=== PATIENT | female | born 1965 | race Caucasian/White ===

== ENCOUNTER 2025-01-23 16:32 | Emergency (ER) | payer OTHER, SELFPAY ==
--- NOTE | ~2025-01-23 | CT_ITS ---
CT lumbar spine wo con Ordering provider: Yo Francisco PA-C History: 59 years Female with . low back injury pain, suspect disc bulge . Comparison: None. Technique: CT lumbar spine without contrast. Automated exposure control and iterative reconstruction technique were employed. The dose-length product was 176.02 mGy-cm. FINDINGS: VERTEBRAE: Normal height and alignment. No subluxation or visible acute fracture. DISC SPACES: Well maintained. Multilevel facet joint disease. T12-L1: No stenosis. L1-L2: No stenosis. L2-L3: No stenosis. Diffuse disc bulge. L3-L4: No stenosis. Diffuse disc bulge. L4-L5: No stenosis. Diffuse disc bulge with bilateral narrowing of the foramina with root compressio n. L5-S1: No stenosis. Diffuse disc bulge. PARASPINOUS SOFT TISSUES: Mild atheromatous disease of the abdominal aorta. Right renal cyst with mild dilatation of the right renal pelvis. IMPRESSION: No acute osseous abnormality. Diffuse disc bulge at the level of L4-L5 with bilateral narrowing of the foramina. MRI is better for evaluation. Reviewed, dictated and finalized at location A. IMPRESSION: No acute osseous abnormality. Diffuse disc bulge at the level of L4-L5 with bilateral narrowing of the forami na. MRI is better for evaluation.
[2025-01-23 16:41] VITALS: BP 128/73; PULSE 75; RESP 16; TEMP 36.2; O2SAT 99
--- NOTE | 2025-01-23 17:10 | ED.BACK ---
HPI - Back Pain/Injury General Chief Complaint: Back Pain/Injury Stated Complaint: back pain Time Seen by Provider: 01/23/25 17:05 Source: patient Mode of arrival: ambulatory Limitations: no limitations History of Present Illness HPI Narrative: This is a 59-year-old female who presents to the ED for chief complaint of low back pain after injury today. Patient states she was moving a full laundry basket onto the floor which she felt a tweak in the low back. Patient states that it was difficult to stand straight up and is still having difficulty with standing up. She has been able to walk with abnormal gait due to pain. Denies numbness, weakness, bowel or bladder dysfunction. Denies radiation of pain into the legs. Related Data Allergies Allergy/AdvReac Type Severity Reaction Status Date / Time No Known Allergies Allergy Verified 01/23/25 16:33 Review of Systems Review of Systems: All systems as dictated in HPI Exam Narrative: GENERAL: Well-appearing, well-nourished, and in no acute distress. HEAD: Normocephalic, atraumatic. EYES: PERRLA and EOMI. ENT: Nares clear, no rhinorrhea or epistaxis. Mucous membranes moist. Oropharynx without tonsillar hypertrophy exudate or other lesions. NECK: Supple. No adenopathy or masses. CHEST: No respiratory distress. Clear to auscultation. No wheezes rales or rhonchi HEART: Regular rate and rhythm. No murmur heard. Normal peripheral pulses. ABDOMEN: Soft, nontender, nondistended, normal active bowel sounds. MSK: No midline spinal tenderness throughout. Focal straight leg raise on the left. Negative on the right. No saddle anesthesia. SKIN: Warm, dry, no rash. NEURO: Alert and oriented x4. No focal deficits. 5/5 strength and sensation to the upper and lower extremities grossly. PSYCH: Normal mood and affect. Course Vital Signs Vital signs: Vital Signs Temperature 97.1 F L 01/23/25 16:41 Pulse Rate 75 01/23/25 16:41 Respiratory Rate 16 01/23/25 16:41 Blood Pressure 128/73 01/23/25 16:41 Pulse Oximetry 99 01/23/25 16:41 Temperature 97.6 F 01/23/25 18:48 Pulse Rate 70 01/23/25 18:48 Respiratory Rate 16 01/23/25 18:48 Blood Pressure 120/70 01/23/25 18:48 Pulse Oximetry 100 01/23/25 18:48 MDM - Back Pain/Injury MDM Narrative Medical decision making narrative: This is a 59-year-old female who presents to the ED for chief complaint of low back injury that occurred this afternoon. Vitals are normal. Exam remarkable for the above an equivocal straight leg raise. No red flag signs for back pain such as bowel, bladder dysfunction, numbness or weakness. CT lumbar wo spine: IMPRESSION: No acute osseous abnormality. Diffuse disc bulge at the level of L4-L5 with bilateral narrowing of the foramina. MRI is better for evaluation. Patient was given Elizabeth here with good relief. Will be given prescription for muscle relaxer. Encouraged OTC pain medications and follow-up with PCP on this issue. Patient will be discharged in stable condition. Supportive measures discussed and return precautions given. Patient is understanding and agreeable with plan for discharge with PCP follow-up. Discharge Plan Discharge Clinical Impression: Strain of lumbar region, Bulging lumbar disc Patient Disposition: Home Condition: Stable Instructions: Antibiotic Form Additional Instructions: Your exam today is reassuring, however there is a bulging disc at L4-L5.. Will resolve slowly over the next several weeks. Please take muscle relaxers as needed. Use regular Tylenol 500 mg and ibuprofen 600 mg every 6 hours as needed for pain control. If you have any new or worsening symptoms please return to the ER for further evaluation. Patient Language: Scottish Prescriptions: New cyclobenzaprine 10 mg tablet 10 mg PO HS PRN (Reason: muscle spasm) Qty: 10 0RF Follow-up/Referrals: PHYSICIAN NOT ON STAFF,NONSTAFF [Primary Care Provider] - Time of Disposition: 18:19
[2025-01-23] MEDS: HYDROcodone/acetaminophen (*CRX) 5-325 MG TABLET 1 TAB PO (17:42)
[2025-01-23] MEDS: IBUPROFEN 400 MG TABLET 800 MG PO (17:42)
--- OUTSIDE RECORDS SUMMARY | 2025-01-23 17:49 | XMS_ITS | Clinical Summary ---
Author Organization [facility] Address [address] [place] [address] Care Team Providers Care Valve Lapper Name Role Phone Unavailable Primary Care Provider Unavailabl e Source Comments [facility],non-owned Affiliates and Associated Physician Practices is amultiple site organization consisting of ambulatory clinics and hospital sitesin [place], [place], [place] and [place]. This disclosure is being madepursuant to the Care Everywhere program and may not contain all information available regarding this patient. Last updated 18.[facility] Allergies No known active allergies Medications * Be aware that medications may not be up to date on this document. Alwaysverify current medications with the patient. No known medications Social History Tobacco Use Types Packs/Day Years Used Date Smoking Tobacco: Every Day Cigarettes Smokeless Tobacco: Never Comments No Sex and Gender Information Value Date Recorded Sex Assigned at Not on file Legal Sex Female 4:35 PM CDT Gender Identity Not on file Sexual Orientation Not on file Last Filed Vital Signs Vital Sign Reading Time Taken Comments Blood Pressure 118/74 08/17/2017 9:11 AM SALES RECRUITER Pulse 82 08/17/2017 9:11 AM SALES RECRUITER Temperature 36.8 C (98.2 F) 08/17/2017 9:11 AM SALES RECRUITER Respiratory Rate 16 08/17/2017 9:11 AM SALES RECRUITER Oxygen Saturation 100% 08/17/2017 9:11 AM SALES RECRUITER Inhaled Oxygen Concentration - - Weight 53.1 kg (117 lb) 08/17/2017 9:11 AM SALES RECRUITER Height 171.5 cm (5' 7.5 ) 08/17/2017 9:11 AM SALES RECRUITER Body Mass Index 18.05 08/17/2017 9:11 AM SALES RECRUITER Plan of Treatment Health Maintenance Due Date Last Done Comments DAYDAY (AGES 45-75) - COL ON CA SCREENING 1966 COLON MONITORING 1966 COLONOSCOPY - COLON CA SCREENING 1966 CT COLONOGRAPHY - COLON CA SCREENING 1966 Colorectal Cancer Screening 1966 FIT - COLON CA SCREENING 1966 FLEX SIG - COLON CA SCREENING 1966 LIPID TESTING 1966 MAMMOGRAM 1966 HIV SCREENING 1981 HEPATITIS C SCREENING 12/17/1984 DTAP/TDAP/TD VACCINES (1 - Tdap) 1985 HEPATITIS B VACCINE (1 of 3 - 19+ 3-dose series) 1985 PNEUMOCOCCAL VACCINE 50+ (1 of 1 - PCV) 2016 ZOSTER VACCINE (1 of 2) 2016 COVID-19 VACCINE ( - 2023-2 5 season) 2024 DEPRESSION SCREENING 10/01/2024 INFLUENZA VACCINE (Season Ended) 2025 HIB VACCINE Aged Out No longer eligi ble based on patient's age to complete this topic HPV VACCINE Aged Out No longer eligi ble based on patient's age to complete this topic MENINGOCOCCAL (Group B) VACC INE SHARED DECISION-MAKING Aged Out No longer eligibl e based on patient's age to complete this topic MENINGOCOCCAL GROUPS A/C/Y/W VACCINE Aged Out No longer eligible b ased on patient's age to complete this topic Insurance [facility]
[2025-01-23 18:48] VITALS: BP 120/70; PULSE 70; RESP 16; TEMP 36.4; O2SAT 100
== END 2025-01-23 18:49 | disposition home or self-care (01) ==
PROVIDERS: Emergency Provider Physician Assistant
DX: S39.012A Strain of muscle, fascia and tendon of lower back, initial encounter (principal); M51.369 Other intervertebral disc degeneration, lumbar region without mention of lumbar back pain or lower extremity pain; X50.0XXA Overexertion from strenuous movement or load, initial encounter
CPT/HCPCS: 72131; 99284; A9270

== ENCOUNTER 2025-08-26 06:27 | Emergency (ER) | payer OTHER, SELFPAY ==
[2025-08-26] VITALS (35 sets, daily range): BP systolic 80–162; BP diastolic 59–81; PULSE 56–110; RESP 12–26; O2SAT 93–100
--- NOTE | ~2025-08-26 | XR_ITS ---
EXAMINATION: XR chest 2V 08/26/2025 06:49 INDICATION: Chest heaviness PROCEDURE: 2 view chest COMPARISON: No prior studies for comparison. FINDINGS: The lungs are clear. The cardiomediastinal silhouette is within normal limits. There are no pleural effusions. There is no pneumothorax suspected. IMPRESSION: 1: NO ACUTE CARDIOPULMONARY DISEASE. Reviewed, dictated and finalized at location O. OR CONTACT CENTRE TEAM LEADER
--- NOTE | 2025-08-26 06:37 | ECG_ITS ---
Test Date: 2025-08-26 08:25:18 Measurements Intervals [place] Rate: 68 P: 74 [place]: 171 QRS: 54 QRSD: 97 T: 75 QT: 390 QTc: 417 Interpretive Statements SINUS RHYTHM Compared to ECG 08/26/2025 06:37:06 NO CHANGES Electronically Signed On 08-26-2025 13:33:39 BEAD MAKER by Marcus Becerra M.D.
[2025-08-26 07:02] LABS: Hematocrit 39.6 % (37.0-47.0); Hemoglobin 13.1 g/dL (12.0-15.0); Immature Granulocyte Percent A 0.4 % (0-0.5); Lymphocytes Absolute Auto 4.82 K/mm3 (0.9-3.2); Mean Corpuscular HGB Conc 33.1 g/dl (32-36); Mean Corpuscular Hemoglobin 30.3 pg (26-34); Mean Corpuscular Volume 91.7 fl (80-100); Nucleated Red Blood Cells Absolute Auto 0.000 K/mm3 (0.0-0.012); Nucleated Red Blood Cells Perc 0.0 % (0.0-0.2); Platelet Count Result 322 k/mm3 (150-375); Red Blood Count 4.32 M/mm3 (4.2-5.4); White Blood Count 10.2 K/mm3 (4.5-10.0)
[2025-08-26 07:11] LABS: Alanine Aminotransferase 12 U/L (6-35); Albumin Level 4.8 g/dL (3.5-5.1); Alkaline Phosphatase 91 U/L (38-126); Anion Gap 7 mmol/L (4-12); Aspartate Amino Transferase 21 U/L (14-36); Bilirubin,Total 0.6 mg/dL (0.2-1.3); Blood Urea Nitrogen 10 mg/dL (7-17); Calcium 10.0 mg/dL (8.4-10.2); Carbon Dioxide 25 mmol/L (22-30); Chloride 106 mmol/L (98-107); Estimated CRCL calculation 54 ml/min; Estimated Glomerular Filt Rate > 60; Glucose 93 mg/dL (65-110); Lipase 182 U/L (23-300); Potassium 4.3 mmol/L (3.4-5.0); Sodium 138 mmol/L (137-145); Total Protein 8.0 g/dL (6.3-8.2)
[2025-08-26] MEDS: ASPIRIN 81 MG CHEWABLE TABLET 324 MG PO (07:12)
[2025-08-26 07:15] LABS: INR 1.0; Partial Thromboplastin Time 30.9 Seconds (22.3-36.8); Prothrombin Time 12.7 Seconds (11.1-14.7)
[2025-08-26 07:22] LABS: Troponin I < 0.012 ng/mL (0.000-0.034)
--- NOTE | 2025-08-26 07:36 | ED.GENADULT ---
HPI - General Adult General Chief complaint: Chest Pain Stated complaint: chest heaviness and fluttering Time Seen by Provider: 08/26/25 06:56 History of Present Illness HPI narrative: This is a 59-year-old female presenting with chief complaint of palpitations. Patient says she woke up from sleep with a heaviness in her chest. The venous was nonradiating, described as not true pain but uncomfortable, constant with no alleviating or precipitating factors. She has never had symptoms like this in the past. She says she feels like her heart is ?running away from her.?Patient denies any history cardiac dysrhythmia or atrial fibrillation. Patient denies any recent illness, shortness breath, chest pain, abdominal pain urinary symptoms or nausea vomiting diarrhea. Patient has no medical history. Related Data Allergies Allergy/AdvReac Type Severity Reaction Status Date / Time No Known Allergies Allergy Verified 08/26/25 06:43 Exam Narrative: APPEARANCE: No apparent distress. Head: atraumatic. EYES: EOMI, NOSE: Atraumatic NECK: Trachea midline RESPIRATORY: No increased rate of breathing clear to auscultation CARDIOVASCULAR: RRR, regular, no peripheral edema ABDOMINAL: Non-distended soft nontender MUSCULOSKELETAl: No obvious deformities NEURO: Alert. Moving 4/4 extremities SKIN:: Warm, dry. Normal color PSYCHIATRIC: Normal affect Course Vital Signs Vital signs: Vital Signs Pulse Rate 90 08/26/25 06:38 Respiratory Rate 26 H 08/26/25 06:38 Blood Pressure 162/81 H 08/26/25 06:38 Pulse Oximetry 97 08/26/25 06:38 Oxygen Delivery Room Air 08/26/25 06:38 Pulse Rate 73 08/26/25 09:48 Respiratory Rate 18 08/26/25 09:48 Blood Pressure 102/68 08/26/25 09:48 Pulse Oximetry 98 08/26/25 09:48 Oxygen Delivery Room Air 08/26/25 06:41 Medical Decision Making [facility] Narrative Medical decision making narrative: -Course: 59-year-old female presenting with palpitations. EKG shows sinus rhythm with frequent PVCs. The rest of her workup was unremarkable including laboratory studies, troponin negative x2 chest x-ray. Patient was informed of the results. She will be given cardiology follow-up. Given return precautions for chest pain worsening palpitations. -DDX includes but is not limited to: PACs, PVCs, atrial fibrillation AV block Vital Signs Vital Signs: Vital Signs Pulse Rate 90 08/26/25 06:38 Respiratory Rate 26 H 08/26/25 06:38 Blood Pressure 162/81 H 08/26/25 06:38 Pulse Oximetry 97 08/26/25 06:38 Oxygen Delivery Room Air 08/26/25 06:38 Pulse Rate 73 08/26/25 09:48 Respiratory Rate 18 08/26/25 09:48 Blood Pressure 102/68 08/26/25 09:48 Pulse Oximetry 98 08/26/25 09:48 Oxygen Delivery Room Air 08/26/25 06:41 Lab Data 08/26/25 06:40 08/26/25 06:40 Labs: Lab Results 08/26/25 08/26/25 Range/Units 06:40 09:35 WBC 10.2 H (4.5-10.0) K/mm3 RBC 4.32 (4.2-5.4) M/mm3 Hgb 13.1 (12.0-15.0) g/dL Hct 39.6 (37.0-47.0) % MCV 91.7 (80-100) fl MCH 30.3 (26-34) pg MCHC 33.1 (32-36) g/dl RDW 13.1 (11.5-14.5) % Plt Count 322 (150-375) k/mm3 MPV 10.4 (7.4-10.4) fl Immature Gran % (Auto) 0.4 (0-0.5) % Neut % (Auto) 44.4 L (45.5-73.1) % Lymph % (Auto) 47.5 H (18.3-44.2) % [place] % (Auto) 5.3 (2.6-8.5) % Eos % (Auto) 1.6 (0-4.4) % Baso % (Auto) 0.8 (0.2-1.2) % Lymph # (Auto) 4.82 H (0.9-3.2) K/mm3 [place] # (Auto) 0.5 (0.1-0.6) K/mm3 Eos # (Auto) 0.2 (0-0.3) K/mm3 Baso # (Auto) 0.1 (0.0-0.1) K/mm3 Abs Immat Gran (auto) 0.04 H (0.00-0.031) K/mm3 Absolute Neuts (auto) 4.5 (1.3-6.7) K/mm3 Absolute Nucleated RBC 0.000 (0.0-0.012) K/mm3 Nucleated RBC % 0.0 (0.0-0.2) % PT 12.7 (11.1-14.7) Seconds INR 1.0 APTT 30.9 (22.3-36.8) Seconds Sodium 138 (137-145) mmol/L Potassium 4.3 (3.4-5.0) mmol/L Chloride 106 (98-107) mmol/L Carbon Dioxide 25 (22-30) mmol/L Anion Gap 7 (4-12) mmol/L BUN 10 (7-17) mg/dL Creatinine 0.87 (0.7-1.0) mg/dL Estim Creat Clear Calc 54 ml/min Estimated GFR > 60 (59 - ) Glucose 93 (65-110) mg/dL Calcium 10.0 (8.4-10.2) mg/dL Total Bilirubin 0.6 (0.2-1.3) mg/dL AST 21 (14-36) U/L ALT 12 (6-35) U/L Alkaline Phosphatase 91 (38-126) U/L Troponin I < 0.012 < 0.012 (0.000-0.034) ng/mL Total Protein 8.0 (6.3-8.2) g/dL Albumin 4.8 (3.5-5.1) g/dL Lipase 182 (23-300) U/L TSH 1.710 (0.465-4.680) uIU/mL Discharge Plan Discharge Clinical Impression: Frequent PVCs Patient Disposition: Home Condition: Stable Instructions: Antibiotic Form, Heart Palpitations (DC) Additional Instructions: You were seen emergency department for palpitations. You are having frequent PVCs.(premature ventricular contractions.) These are not dangerous but can be uncomfortable or knowing. Please follow-up with the nitroglycerin separator operator listed below for further management. If you develop chest pain or any new symptoms return to the ED for re-evaluation. Patient Language: Maltese Prescriptions: No Action cyclobenzaprine 10 mg tablet 10 mg PO HS PRN (Reason: muscle spasm) Qty: 10 0RF Follow-up/Referrals: kayla [Other] PHYSICIAN NOT ON STAFF,NONSTAFF [Non-Staff] Stacey Valle MD [Physician, Cardiology] - 1 Week Clinical Impression: Frequent PVCs
--- OUTSIDE RECORDS SUMMARY | 2025-08-26 08:18 | XMS_ITS | Clinical Summary ---
Author Organization [facility] Address [address] [place] [address] Care Team Providers Care Transformation Consultant Name Role Phone Unavailable Primary Care Provider Unavailabl e Source Comments [facility],non-owned Affiliates and Associated Physician Practices is amultiple site organization consisting of ambulatory clinics and hospital sitesin [place], [place], [place] and [place]. This disclosure is being madepursuant to the Care Everywhere program and may not contain all information available regarding this patient. Last updated 18.[facility] Allergies No known active allergies Medications * [...] Comments Blood Pressure 118/74 08/17/2017 9:11 AM ACID CRANE OPERATOR Pulse 82 08/17/2017 9:11 AM ACID CRANE OPERATOR Temperature 36.8 C (98.2 F) 08/17/2017 9:11 AM ACID CRANE OPERATOR Respiratory Rate 16 08/17/2017 9:11 AM ACID CRANE OPERATOR Oxygen Saturation 100% 08/17/2017 9:11 AM ACID CRANE OPERATOR Inhaled Oxygen Concentration - - Weight 53.1 kg (117 lb) 08/17/2017 9:11 AM ACID CRANE OPERATOR Height 171.5 cm (5' 7.5) 08/17/2017 9:11 AM ACID CRANE OPERATOR Body Mass Index 18.05 08/17/2017 9:11 AM ACID CRANE OPERATOR Plan of Treatment Health Maintenance Due Date [...] of 3 - 19+ 3-dose series) 1985 PAP SMEAR 12/23/1987 Cervical Cancer Screening 1996 PAP with HPV 1996 PNEUMOCOCCAL VACCINE 50+ (1 of 1 - PCV) 2016 ZOSTER VACCINE (1 of 2) 2016 DEPRESSION SCREENING 10/01/2024 COVID-19 VACCINE (1 - 2024-2 6 season) 2025 INFLUENZA VACCINE (#1) 2025 HIB VACCINE Aged Out No longer [...] patient's age to complete this topic Insurance [facility] [place] [facility] [place] Address: [facility] [id number] [place] [id number]
--- NOTE | 2025-08-26 08:20 | ECG_ITS ---
Test Date: 2025-08-26 08:30:58 Measurements Intervals [place] Rate: 73 P: 75 RI: 174 QRS: 55 QRSD: 85 T: 75 QT: 378 QTc: 419 Interpretive Statements SINUS RHYTHM WITH OCCASIONAL ECTOPIC PREMATURE COMPLEXES Compared to ECG 08/26/2025 08:25:18 NO SIGNIFICANT CHANGES Electronically Signed On 08-26-2025 13:33:57 STRATIGRAPHY TEACHER by Marcus Becerra M.D.
--- NOTE | 2025-08-26 08:27 | ECG_ITS ---
Test Date: 2025-08-26 06:37:06 Measurements Intervals [place] Rate: 87 P: 75 SC: 166 QRS: 60 QRSD: 85 T: 71 QT: 355 QTc: 427 Interpretive Statements SINUS RHYTHM WITH FREQUENT VENTRICULAR PREMATURE COMPLEXES POSSIBLE LEFT ATRIAL ENLARGEMENT [-0.1mV P WAVE IN V1/V2] No previous ECG available for comparison Electronically Signed On 08-26-2025 13:32:53 BUSSER by Marcus Becerra M.D.
[2025-08-26 09:15] LABS: Thyroid Stimulating Hormone 1.710 uIU/mL (0.465-4.680)
--- NOTE | 2025-08-26 09:47 | ECG_ITS ---
Test Date: 2025-08-26 09:50:53 Measurements Intervals [place] Rate: 65 P: 73 [place]: 182 QRS: 48 QRSD: 86 T: 78 QT: 378 QTc: 394 Interpretive Statements SINUS RHYTHM WITH OCCASIONAL VENTRICULAR PREMATURE COMPLEXES POSSIBLE RIGHT VENTRICULAR CONDUCTION DELAY [RSR (QR) IN V1/V2] Compared to ECG 08/26/2025 08:30:58 Ventricular premature complex(es) still present Electronically Signed On 08-26-2025 13:36:49 ANTIQUE FINISHER by Marcus Becerra M.D.
[2025-08-26 10:04] LABS: Troponin I < 0.012 ng/mL (0.000-0.034)
== END 2025-08-26 14:07 | disposition home or self-care (01) ==
PROVIDERS: Student in an Organized Health Care Education/Training Program; Emergency Provider Emergency Medicine; PCP Family Medicine
DX: I49.3 Ventricular premature depolarization (principal); R94.31 Abnormal electrocardiogram [ECG] [EKG]
CPT/HCPCS: 36415; 71046; 80053; 83690; 84443; 84484; 85025; 85610; 85730; 93005; 99284; A9270